=== PATIENT | male | born 1955 | race Two or more races ===

== ENCOUNTER → 2017-06-12 | Outpatient (CLI) | payer MEDICAID ==
[~2017-06-12] VITALS: Ht 188 cm; Wt 102.0 kg
[~2017-06-12] MED LIST: ASPI-556 PO; CARV25 PO; ENAL20 PO; HYDR25TA84 PO; ISOS60TA4 PO; LORA10TA7 PO; SILVER SULFADIAZINE 1% 25 GM CREAM TP ONE
[2017-06-12 09:24] VITALS: BP 156/100
[2017-06-12 10:38] VITALS: BP 182/92
== END | disposition home or self-care (01) ==
LOC: HBOWC 08:50
PROVIDERS: ATTEND Emergency Medicine
DX: I83.022 Varicose veins of left lower extremity with ulcer of calf (principal); L97.221 Non-pressure chronic ulcer of left calf limited to breakdown of skin; I10 Essential (primary) hypertension; I73.9 Peripheral vascular disease, unspecified; Z59.0 Homelessness
CPT/HCPCS: G0463; Z7610

== ENCOUNTER → 2017-06-19 | Outpatient (CLI) | payer MEDICAID ==
[~2017-06-19] MED LIST changes: +ACETAMINOPHEN 325 MG TABLET PO ONE; +NYSTATIN 30 GM OINTMENT TP ONE; -SILVER SULFADIAZINE 1% 25 GM CREAM TP ONE
[2017-06-19 12:02] VITALS: BP 160/87
== END | disposition home or self-care (01) ==
LOC: HBOWC 10:46
PROVIDERS: ATTEND Emergency Medicine
DX: I83.022 Varicose veins of left lower extremity with ulcer of calf (principal); L97.221 Non-pressure chronic ulcer of left calf limited to breakdown of skin; I10 Essential (primary) hypertension; I73.9 Peripheral vascular disease, unspecified; Z59.0 Homelessness
CPT/HCPCS: 11042

== ENCOUNTER → 2017-06-26 | Outpatient (CLI) | payer MEDICAID ==
[~2017-06-26] MED LIST changes: -ACETAMINOPHEN 325 MG TABLET PO ONE; +ACETAMINOPHEN 500 MG TABLET PO ONE; -NYSTATIN 30 GM OINTMENT TP ONE
[2017-06-26 11:03] VITALS: BP 96/60
== END | disposition home or self-care (01) ==
LOC: HBOWC 10:04
PROVIDERS: ATTEND Emergency Medicine
DX: E11.622 Type 2 diabetes mellitus with other skin ulcer (principal); L97.221 Non-pressure chronic ulcer of left calf limited to breakdown of skin; E11.51 Type 2 diabetes mellitus with diabetic peripheral angiopathy without gangrene; I10 Essential (primary) hypertension
CPT/HCPCS: 11042

== ENCOUNTER → 2017-07-03 | Outpatient (CLI) | payer MEDICAID ==
[2017-07-03 09:34] VITALS: BP 130/80
== END | disposition home or self-care (01) ==
LOC: HBOWC 08:59
PROVIDERS: ATTEND Emergency Medicine
DX: I83.022 Varicose veins of left lower extremity with ulcer of calf (principal); E11.622 Type 2 diabetes mellitus with other skin ulcer; L97.221 Non-pressure chronic ulcer of left calf limited to breakdown of skin; E11.51 Type 2 diabetes mellitus with diabetic peripheral angiopathy without gangrene; I10 Essential (primary) hypertension; Z59.0 Homelessness